=== PATIENT | female | born 1965 ===

== ENCOUNTER 2023-05-13 08:25 | Outpatient (CLI) | payer BC | END 2023-05-13 23:59 | disposition home or self-care (01) | LOC: LAB.S 08:25 | PROVIDERS: ATTEND Physician Assistant | DX: R30.0 Dysuria (principal) | CPT/HCPCS: 87086 ==

== ENCOUNTER 2023-12-01 08:00 | Outpatient (CLI) | payer OTHER | END 2023-12-01 23:59 | disposition home or self-care (01) | LOC: LAB.S 08:00 | PROVIDERS: ATTEND Emergency Medicine | DX: N30.00 Acute cystitis without hematuria (principal) | CPT/HCPCS: 87086 ==